=== PATIENT | female | born 1950 | race Caucasian/White ===

== ENCOUNTER → 2016-12-05 | Outpatient (CLI) | payer MEDICARE, MEDICAID ==
[~2016-12-05] MED LIST: ALBUTEROL0.09 MG/A2 IH; ALBUTEROL0.09 MG/A2 INH; ASPIRIN325 MG; ASPIRIN81 M1 PO; CELEXA20 MG PO; COMBIVENT1 AR1 IH; DAYPRO600 M1 PO; DIFLUCAN150 MG PO; DOXYCYCLINE HY100 M5 PO; DUONEB 3 MG/3 ML3 M1 NEB; Ecotrin325 MG PO; HYCODAN/HYDROMET5 ML PO; KLONOPIN0.5 MG; KLONOPIN1 MG PO; MULTIPLE VITAMI1 CAP PO; NICOTINE T21 MG/24 H TD; NITRO TRANS0.4 MG/HR T; NITRODISC TD; OMEPRAZOLE40 MG PO; OXYBUTYNIN5 MG PO; PRAVACHOL20 MG PO; PREDNICOT10 MG PO; PREDNICOT20 MG PO; PREDNISONE10 MG PO; PRENATAL1 TA3 PO; PROVENTIL0.09 MG/AC IH; PROZAC40 MG PO; ROBAXIN750 MG PO; TOVIAZ8 MG PO; VIBRAMYCIN100 MG PO; VIIBRYD40; VITAMIN D50000 I3 PO; XANAX1 MG PO; ZITHROMAX Z PA250 MG PO; [UNRECOGNIZED DRUG - REMARK]
[2016-12-05 12:15] LABS: BASO % 0.2 % (0.0-1.0); EOS % 0.3 % (1.0-4.0); HEMATOCRIT 43.5 % (37.0-47.0); HEMOGLOBIN 14.4 g/dl (12.0-16.0); LYMPH % 33.1 % (27.0-41.0); MEAN CELL VOLUME 97.1 fl (81.0-99.0); MEAN CORPUSCULAR HGB 32.1 pg (27.0-31.0); MEAN CORPUSCULAR HGB CONC 33.1 g/dl (33.0-37.0); MEAN PLATELET VOLUME 10.5 fl (9.6-12.3); MONO # 0.8 10*3/uL (0.1-1.0); NEUT # 7.1 10*3/uL (2.3-7.9); NEUT % 59.1 % (47.0-73.0); PLATELET COUNT AUTOMATED 229 10*3/uL (130-400); RED BLOOD COUNT 4.48 10*6/uL (4.10-5.10); RED CELL DISTRI WIDTH 13.6 % (0-14.5); WHITE BLOOD COUNT 12.1 10*3/uL (4.8-10.8)
== END | disposition home or self-care (01) ==
LOC: LAB 11:15
PROVIDERS: Internal Medicine Hematology & Oncology
DX: J44.9 Chronic obstructive pulmonary disease, unspecified (principal); D72.829 Elevated white blood cell count, unspecified; R13.10 Dysphagia, unspecified; R49.0 Dysphonia; F17.200 Nicotine dependence, unspecified, uncomplicated; Z85.3 Personal history of malignant neoplasm of breast; Z90.12 Acquired absence of left breast and nipple

== ENCOUNTER → 2017-05-21 | Outpatient (CLI) | payer MEDICARE | END | disposition home or self-care (01) | LOC: RAD 11:52 | DX: M17.12 Unilateral primary osteoarthritis, left knee (principal); M51.36 Other intervertebral disc degeneration, lumbar region; M47.896 Other spondylosis, lumbar region; M25.462 Effusion, left knee ==

== ENCOUNTER → 2017-06-12 | Outpatient (CLI) | payer MEDICARE ==
[~2017-06-12] MED LIST changes: +ZYPREXA20 M1 PO
== END | disposition home or self-care (01) ==
LOC: CARD 01:34
DX: R07.2 Precordial pain (principal)

== ENCOUNTER 2017-07-12 09:25 | Emergency (ER) | payer MEDICARE ==
[~2017-07-12] VITALS: Ht 157.4 cm; Wt 77.1 kg
[2017-07-12 09:51] LABS: BASO % 0.4 % (0.0-1.0); EOS # 0.1 10*3/uL (0.0-0.4); EOS % 1.4 % (1.0-4.0); HEMATOCRIT 39.5 % (37.0-47.0); HEMOGLOBIN 12.9 g/dl (12.0-16.0); LYMPH # 2.9 10*3/uL (1.3-4.4); LYMPH % 37.4 % (27.0-41.0); MEAN CELL VOLUME 96.3 fl (81.0-99.0); MEAN CORPUSCULAR HGB 31.5 pg (27.0-31.0); MEAN CORPUSCULAR HGB CONC 32.7 g/dl (33.0-37.0); MEAN PLATELET VOLUME 10.3 fl (9.6-12.3); MONO # 0.6 10*3/uL (0.1-1.0); MONO % 7.5 % (3.0-9.0); NEUT # 4.1 10*3/uL (2.3-7.9); PLATELET COUNT AUTOMATED 175 10*3/uL (130-400); RED CELL DISTRI WIDTH 13.2 % (0-14.5); WHITE BLOOD COUNT 7.7 10*3/uL (4.8-10.8)
[2017-07-12 10:07] LABS: ALBUMIN 3.3 gm/dl (3.1-4.5); ALKALINE PHOSPHATASE 103 U/L (45-117); BUN 9 mg/dl (7-24); CHLORIDE 104 mmol/L (98-107); CREATININE 0.69 mg/dL (0.55-1.02); POTASSIUM 4.4 mmol/L (3.5-5.1); SGOT/AST 17 IU/L (3-35); SGPT/ALT 21 U/L (12-78); SODIUM 141 mmol/L (136-145); TOTAL PROTEIN 6.9 gm/dL (6.4-8.2)
[2017-07-12 10:09] LABS: TROPONIN I < 0.015 ng/ml (<0.045)
[2017-07-12 11:15] VITALS: BP 102/64
== END 2017-07-12 11:25 | disposition home or self-care (01) ==
LOC: ED 09:25
PROVIDERS: Nurse Practitioner Family
DX: G89.29 Other chronic pain (principal); M25.562 Pain in left knee; E78.5 Hyperlipidemia, unspecified; Z90.710 Acquired absence of both cervix and uterus; Z90.49 Acquired absence of other specified parts of digestive tract; Z98.890 Other specified postprocedural states; Z79.82 Long term (current) use of aspirin; Z88.6 Allergy status to analgesic agent; Z88.5 Allergy status to narcotic agent

== ENCOUNTER 2017-12-25 14:20 | Inpatient (IN) | payer OTHER, MEDICAID ==
[~2017-12-25] VITALS: Ht 154.9 cm; Wt 95.7 kg
--- NOTE | ~2017-12-25 | EKG ---
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
[2017-12-25 14:46] VITALS: BP 111/50
[2017-12-25 15:23] LABS: BASO % 0.3 % (0.0-1.0); EOS # 0.1 10*3/uL (0.0-0.4); EOS % 0.9 % (1.0-4.0); HEMATOCRIT 43.3 % (37.0-47.0); LYMPH # 2.9 10*3/uL (1.3-4.4); LYMPH % 28.3 % (27.0-41.0); MEAN CELL VOLUME 95.6 fl (81.0-99.0); MEAN CORPUSCULAR HGB 30.9 pg (27.0-31.0); MEAN CORPUSCULAR HGB CONC 32.3 g/dl (33.0-37.0); MEAN PLATELET VOLUME 10.4 fl (9.6-12.3); MONO # 0.7 10*3/uL (0.1-1.0); MONO % 6.7 % (3.0-9.0); NEUT # 6.5 10*3/uL (2.3-7.9); NEUT % 63.5 % (47.0-73.0); PLATELET COUNT AUTOMATED 210 10*3/uL (130-400); RED BLOOD COUNT 4.53 10*6/uL (4.10-5.10); RED CELL DISTRI WIDTH 13.7 % (0-14.5); WHITE BLOOD COUNT 10.3 10*3/uL (4.8-10.8)
[2017-12-25 15:41] LABS: ALBUMIN 3.6 gm/dl (3.1-4.5); ALKALINE PHOSPHATASE 107 U/L (45-117); BUN 12 mg/dl (7-24); CHLORIDE 103 mmol/L (98-107); CREATININE 0.64 mg/dL (0.55-1.02); POTASSIUM 4.3 mmol/L (3.5-5.1); SGOT/AST 15 IU/L (3-35); SGPT/ALT 21 U/L (12-78); SODIUM 139 mmol/L (136-145); TOTAL PROTEIN 7.3 gm/dL (6.4-8.2)
[2017-12-25 15:47] LABS: TROPONIN I < 0.015 ng/ml (<0.045)
[2017-12-25] MEDS ORDERED: VITAMIN D-32000 UNIT PO (15:54)
[2017-12-25 16:00] VITALS: BP 111/50
[2017-12-25 20:00] VITALS: BP 86/49
[2017-12-25 20:45] VITALS: BP 86/48
[2017-12-25 22:45] VITALS: BP 108/68
[2017-12-26] VITALS (7 sets, daily range): BP systolic 86–152; BP diastolic 48–70
[2017-12-26 06:14] LABS: BASO % 0.2 % (0.0-1.0); HEMATOCRIT 42.1 % (37.0-47.0); HEMOGLOBIN 13.2 g/dl (12.0-16.0); LYMPH # 1.3 10*3/uL (1.3-4.4); MEAN CELL VOLUME 97.9 fl (81.0-99.0); MEAN CORPUSCULAR HGB 30.7 pg (27.0-31.0); MEAN CORPUSCULAR HGB CONC 31.4 g/dl (33.0-37.0); MEAN PLATELET VOLUME 10.8 fl (9.6-12.3); MONO # 0.1 10*3/uL (0.1-1.0); MONO % 0.5 % (3.0-9.0); NEUT # 10.3 10*3/uL (2.3-7.9); NEUT % 87.7 % (47.0-73.0); PLATELET COUNT AUTOMATED 197 10*3/uL (130-400); RED CELL DISTRI WIDTH 13.7 % (0-14.5); WHITE BLOOD COUNT 11.8 10*3/uL (4.8-10.8)
[2017-12-26 06:56] LABS: BUN 15 mg/dl (7-24); CHLORIDE 103 mmol/L (98-107); CHOLESTEROL 181 mg/dL (<200); CREATININE 1.05 mg/dL (0.55-1.02); PHOSPHOROUS 3.2 mg/dL (2.5-4.9); POTASSIUM 3.7 mmol/L (3.5-5.1); SODIUM 139 mmol/L (136-145)
[2017-12-26 07:08] LABS: FREE T4 1.03 ng/dl (0.76-1.46); HDL CHOLESTEROL 50 mg/dl (40-60); LDL CHOLESTEROL 117 mg/dL (9-159); THYROID STIM HORMONE (HS) 0.104 uIU/ml (0.358-4.75); TRIGLYCERIDES 71 mg/dl (<150); VLDL CHOLESTEROL 14 mg/dL (6-40)
[2017-12-26 07:59] LABS: VITAMIN D, 25-HYDROXY 28.7 ng/mL (30-100)
[2017-12-27] VITALS: BP 130/69
[2017-12-27 06:38] LABS: CHLORIDE 106 mmol/L (98-107); CREATININE 0.93 mg/dL (0.55-1.02); SODIUM 140 mmol/L (136-145)
[2017-12-27 06:40] LABS: BUN 26 mg/dl (7-24); POTASSIUM 4.8 mmol/L (3.5-5.1)
[2017-12-27 08:00] VITALS: BP 129/76
[2017-12-27 12:00] VITALS: BP 126/78
[2017-12-27 16:00] VITALS: BP 92/50; BP 98/49
[2017-12-28] VITALS: BP 91/44
[2017-12-28 08:00] VITALS: BP 95/58
[2017-12-28 12:00] VITALS: BP 90/49
[2017-12-28] MEDS ORDERED: DOXYCYCLINE100 M3 PO (13:26)
[2017-12-28] MEDS ORDERED: PREDNISONE10 MG PO (13:26)
[2017-12-28] MEDS ORDERED: NATURE'S BLEND F1 MG PO (13:26)
[2017-12-28] MEDS ORDERED: GUAIFENESIN600 MG PO (13:27)
[2017-12-28] MEDS ORDERED: GLUCOPHAGE500 M1 PO (13:27)
== END 2017-12-28 15:00 | disposition home or self-care (01) | DRG 190 ==
LOC: 4E 14:20
PROVIDERS: Student in an Organized Health Care Education/Training Program
DX: J44.1 Chronic obstructive pulmonary disease with (acute) exacerbation (principal); N17.0 Acute kidney failure with tubular necrosis; R13.10 Dysphagia, unspecified; K21.9 Gastro-esophageal reflux disease without esophagitis; E66.09 Other obesity due to excess calories; M19.90 Unspecified osteoarthritis, unspecified site; E53.8 Deficiency of other specified B group vitamins; F41.1 Generalized anxiety disorder; H26.9 Unspecified cataract; E11.65 Type 2 diabetes mellitus with hyperglycemia; I95.9 Hypotension, unspecified; Z90.12 Acquired absence of left breast and nipple; Z85.3 Personal history of malignant neoplasm of breast; Z98.1 Arthrodesis status; Z83.3 Family history of diabetes mellitus; Z82.49 Family history of ischemic heart disease and other diseases of the circulatory system; Z82.3 Family history of stroke; Z88.6 Allergy status to analgesic agent; Z90.49 Acquired absence of other specified parts of digestive tract; Z91.041 Radiographic dye allergy status; Z91.048 Other nonmedicinal substance allergy status; Z79.82 Long term (current) use of aspirin; Z79.899 Other long term (current) drug therapy; Z68.39 Body mass index [BMI] 39.0-39.9, adult; Z71.6 Tobacco abuse counseling

== ENCOUNTER 2018-01-04 15:03 | Inpatient (IN) | payer OTHER, MEDICAID ==
[~2018-01-04] VITALS: Ht 154.9 cm; Wt 95.8 kg
--- NOTE | ~2018-01-04 | PR ---
[place], [place] PROGRESS NOTE NAME: LOREN DIAZ UNIT #: [id number] ROOM: 404 DOCTOR: LOWELL MAI MD,GUILHERME BIRTHDATE: [birth year] DOS: 01/06/2018 SUBJECTIVE: She has been noted comfortable at this time, the client reported reduction of the symptoms of cough, but still noted significant wheezing. Shortness of breath occurs mild at rest and with exertion. She was continued on intravenous corticosteroids and other medical management. The patient denies symptoms of hemoptysis. OBJECTIVE: VITAL SIGNS: Normal temperature, respiratory rate 20, heart rate 107, blood pressure 117/69, pulse ox saturation on 2 liters nasal cannula 97% saturation. HEENT: Examination shows head was atraumatic. Eyes nonicterus. NECK: Supple. It was obese. CARDIOVASCULAR SYSTEM: S1, S2 audible. LUNGS: Noted diffuse expiratory wheezing. There were no crackles. ABDOMEN: Soft, nontender. Bowel sounds present and obese. EXTREMITIES: No edema. LABORATORY DATA: The sputum culture that was done shows preliminary finding normal jose, final culture results were pending. IMPRESSION: 1. Ongoing acute exacerbation of chronic obstructive pulmonary disease with acute bronchitis, which has been noted with slow improvement. 2. The patient with an acute hypoxic respiratory failure as well secondary to chronic obstructive pulmonary disease. PLAN OF MANAGEMENT: Continuation of current therapy at this time without any changes with use of bronchodilators, oxygen supplementation, corticosteroids, which is currently given high dose 60 mg q.8h. Monitor respiratory status, titrate oxygen supplementation, maintain pulse ox saturation 92% or greater. GUILHERME ETIENNE MD CM:PNTRANS [id number] [id number] GUILHERME MAI MD 01/22/18 0759 interface
--- NOTE | ~2018-01-04 | PR ---
[place], [place] PROGRESS NOTE NAME: LOREN DIAZ [facility] #: [id number] UNIT #: [id number] ROOM: 404 DOCTOR: EVELYN QUINTERO MD BIRTHDATE: [birth year] DOS: 01/05/2018 SUBJECTIVE: The patient is a known case of COPD with emphysema, was only recently discharged from the hospital on 12/28/2017 and developed reexacerbation of difficulty in breathing and was feeling very much shortness of breath, was feeling very weak and she was admitted to the hospital due to acute exacerbation of COPD with emphysema with hypoxia with difficulty in breathing and possible pneumonitis or acute respiratory tract infection. Chest x-ray done, did not show any pneumonia. The patient had some fever, but she did not have any pneumonia and she did not have any chills or fever. Her diagnoses on admission was COPD with acute exacerbation with hypotension, acute respiratory failure, hypoxia, failure of outpatient treatment, epigastric pain, leukocytosis, elevated C-reactive protein, elevated brain natriuretic peptide BNP, protein-calorie malnutrition, tobacco abuse, GERD syndrome, obesity, folate deficiency, vitamin D deficiency and diabetes mellitus type 2. Her troponin levels on 2 different occasions are normal. CT of the chest shows COPD with mild centrilobular emphysema, no pneumothorax or pleural effusion or consolidation, no evidence of acute infiltrative process, in the abdomen or pelvis, mild hepatic steatosis. CBC showed white count 37,400, hemoglobin 12.4, hematocrit 39.8. Basic metabolic profile shows glucose 279, CO2 of 33, lipase 65. Other values are normal. OBJECTIVE: VITAL SIGNS: Her blood pressure is 95/56, pulse 80, respirations 20, temperature 98.2, pulse ox is 99%. The patient says she is feeling better. HEART: Regular. CHEST: Increased expiration. No crepitation. EXTREMITIES: There is no edema of leg. ABDOMEN: Soft. EVELYN QUINTERO MD CM:PNTRANS 5 2 EVELYN QUINTERO MD 01/21/18 0800 interface
--- NOTE | ~2018-01-04 | CON ---
[place], [place] REPORT OF CONSULTATION NAME: LOREN DIAZ [facility] #: [id number] UNIT #: [id number] ROOM: 404 DOCTOR: GUILHERME HAIRSTON MD BIRTHDATE: [birth year] DOS: 01/05/2018 PULMONARY CONSULTATION, EVALUATION, AND MANAGEMENT REASON FOR CONSULTATION: Assess the patient for acute exacerbation of chronic obstructive pulmonary disease. HISTORY OF PRESENT ILLNESS: This is a 67-year-old white female patient with known past history of COPD, has been admitted to the hospital. The patient has been admitted to this hospital previously and discharged home. The patient remained in Hospital, medical record review from 12/25/2017 until 12/28/2017 for the acute exacerbation of chronic obstructive pulmonary disease as well as abdominal pain. The patient was managed at home for this. The patient discharged home on tapering dose of prednisone of the medical management, presented back to the hospital. The patient admitted to the hospital on 01/04/2018. The patient was seen in the office of primary care physician for followup visit where she was reported with increased shortness of breath. The patient denies any symptoms of chest pain. Cough has been noted moderately without any sputum expectoration. She was also noted with excessive drainage as well as productive white sputum expectoration. The patient also reported with subjective feeling of temperature of 102 degrees Fahrenheit at home and also noted with hypoxia and tachycardia in the office of primary care physician pulse ox saturation at 88% as well. The patient has been currently admitted to the hospital. The patient has been treated for acute exacerbation of COPD. REVIEW OF SYSTEMS: CONSTITUTIONAL SYMPTOMS: Fatigue and tiredness noted without any symptoms of fever or chills. EYES: Denies any burning, redness, or tenderness. EARS, NOSE, THROAT SYMPTOMS: Denies sore throat, hoarseness, otalgia, postnasal drainage. CARDIOVASCULAR: No angina pain, edema of the lower extremities. GASTROINTESTINAL: No dysphagia, nausea, vomiting, diarrhea, abdominal pain, hematemesis, melena, hematochezia, abnormal weight loss. GENITOURINARY: No dysuria or urinary incontinence except the urge incontinence. SKIN: Denies any hematuria or flank pain. MUSCULOSKELETAL: Denies acute joint pain, redness or tenderness or deformities. CENTRAL NERVOUS SYSTEM: Denies any dizziness, headache, diplopia, syncopal episodes or seizures. SKIN: No lesions or rashes. Remaining systems were reviewed. They were noted all negative. PAST MEDICAL HISTORY: 1. Chronic obstructive pulmonary disease. 2. History of breast cancer. The patient with a left mastectomy in the past. 3. Type 2 diabetes mellitus. 4. Generalized anxiety disorder. 5. Gastroesophageal reflux disease. 6. Osteoarthritis. [place], [place] REPORT OF CONSULTATION NAME: LOREN DIAZ UNIT #: [id number] ROOM: [facility] DOCTOR: THAIS HAIRSTON MDM BIRTHDATE: [birth year] 7. Stress incontinence. 8. Vitamin D deficiency. PAST SURGICAL HISTORY: 1. Left breast mastectomy. 2. Carpal tunnel surgery. 3. Cholecystectomy. 4. Cervical spine fusion. 5. Complete hysterectomy. SOCIAL HISTORY: The patient was reported with tobacco use, started since early teens, a pack of cigarettes per day. The patient stated has not been smoking cigarettes for the past one week. She is , no children, lives at home. Denies history of alcohol use or any illicit drugs. FAMILY HISTORY: Father of complication of heart disease. Mother with complication related to the stroke. HOME MEDICATIONS: Listed on admission use of albuterol sulfate, Xanax, aspirin, vitamin D, doxycycline, Prozac, folic acid, DuoNeb, Mucinex, metformin, Zyprexa, omeprazole, Oxybutynin and prednisone tapering dose. DRUG ALLERGIES: 1. IBUPROFEN. 2. CODEINE PHOSPHATE. PHYSICAL EXAMINATION: GENERAL: A 67-year-old female who has been currently noted to be awake and alert without acute any distress. The patient's height was recorded by the nursing staff at the time of the current admission with height of 5 feet 1 inch, weight of 211 pounds, BMI 39.9. VITAL SIGNS: For the patient which has been recorded showed the temperature was noted normal in the last 24 hours. The respiratory rate 20-18, heart rate of 80-72, blood pressure of 90/53-94/64. The intake for the patient recorded 1000, output 1200 mL. Pulse oxygen saturation on 3 liters via nasal cannula 95% saturation. HEENT: Head was atraumatic. Eyes nonicterus. NECK: Supple. CARDIOVASCULAR: S1, S2 is audible. LUNGS: Noted with decreased breath sounds with expiratory wheezing in the lungs bilaterally. ABDOMEN: Soft and nontender. Bowel sounds present. EXTREMITIES: The patient noted without any acute edema, clubbing or cyanosis. VISIBLE SKIN: No lesions or rashes. MUSCULOSKELETAL: Without any acute deformities. CENTRAL NERVOUS SYSTEM: Cranial nerves II through XII intact. No gross focal neurologic deficit. LABORATORY DATA: Blood culture for the patient from the past admission on 12/25/2017 was normal. Lactic acid on admission 01/04/2018 was normal. CBC on [place], [place] REPORT OF CONSULTATION NAME: LOREN DIAZ UNIT #: [id number] ROOM: 404 DOCTOR: LOWELL MAI MD,GUILHERME BIRTHDATE: [birth year] 01/04/2018, WBC count 14.5, hemoglobin 12, and platelet count were normal. CMP of 01/04/2018, normal BUN and creatinine. CO2 35. Troponin 3 sets in 24 hours were noted as normal. CBC of the patient this morning, WBC count 13.4, remaining CBC was normal. The BMP of patient this morning, glucose 279, normal BUN and creatinine. CT scan of the chest that was done without contrast was personally reviewed on admission was noted with changes of centrilobular emphysema without any acute pulmonary infiltration or other abnormalities. IMPRESSION: 1. The patient who has been admitted to the hospital noted with acute respiratory failure with subjective symptoms of fever. There was no evidence of acute pneumonia. Acute tracheobronchitis noted. 2. Possible trigger factor recurrent exacerbation of chronic obstructive pulmonary disease would be noted as most likely tobacco use. 3. Acute hypoxic respiratory failure result of the acute exacerbation of chronic obstructive pulmonary disease. 4. History of chronic obesity. 5. Relative mild hypotension without any vital organ issue for this patient and hypoperfusion noted, currently asymptomatic. PLAN OF THERAPY: The patient has been currently getting the Solu-Medrol 60 mg q.8h. that will be continued. Continue bronchodilators every 4 hours, current antibiotic, monitor culture results. Order the sputum for Gram stain and culture as well. Intravenous fluid for the patient was administered at least for 24 hours normal saline adequately at the volume reexpansion. Other supportive therapy, plan of management and care plan. Usual treatment. Additional treatment changes will be ordered based on progression of the illness. Thanks for allowing me to participate in the care of this patient. GUILHERME ETIENNE MD CM:CONSTR:REPORT OF CONSULTATION 1705 01/22/18 0802 interface
--- NOTE | ~2018-01-04 | EKG ---
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
--- NOTE | ~2018-01-04 | PR ---
[place], [place] PROGRESS NOTE NAME[facility] [id number] UNIT #: [id number] ROOM: 404 DOCTOR: LOWELL MAI MD,GUILHERME BIRTHDATE: [birth year] DOS: 01/07/2018 SUBJECTIVE: The patient was noted comfortable at this time without any acute distress. At this time, shortness breath, cough and wheezing has been decreased significantly in the last 24 hours. Cough has been noted minimal. Wheezing was also noted significant decrease. No chest pain. OBJECTIVE: VITAL SIGNS: Normal temperature, respiratory rate 18, heart rate 80, blood pressure 104/48 this morning. The pulse oxygen saturation recorded on 3 liters nasal cannula 94% saturation. HEAD, EYES, EARS, NOSE, AND THROAT: Examination shows head was atraumatic. Eyes nonicterus. NECK: Supple. CARDIOVASCULAR SYSTEM: S1, S2 is audible. LUNGS: Noted moderate decreased breath sounds bilaterally without any crackles, rhonchi, or wheezing. ABDOMEN: Soft, nontender. Bowel sounds present. EXTREMITIES: Without any acute edema. IMPRESSION: Acute respiratory failure with acute exacerbation of chronic obstructive pulmonary disease, past history of nicotine abuse and chronic obesity. PLAN OF MANAGEMENT: The patient could be assess home discharge at the present time. The oxygen supplementation needs to be assessed. Plan for home discharge, any home oxygen supplementation. Tobacco cessation addressed with the patient. Sputum culture noted no bacterial growths. GUILHERME ETIENNE MD CM:PNTRANS 1232 [id number] ISRAEL MAI MD 01/08/18 0930 MAURICE ATKINSON.ISRAEL
--- NOTE | ~2018-01-04 | PR ---
[place], [place] PROGRESS NOTE NAME: LOREN DIAZ [facility] #: [id number] UNIT #: [id number] ROOM: 404 DOCTOR: EVELYN QUINTERO MD BIRTHDATE: [birth year] DOS: SUBJECTIVE: The patient has been admitted with acute exacerbation of COPD with emphysema with difficulty in breathing. She is feeling much better as compared to yesterday. She denies any chest pain and she is having slight cough with some sore throat, but no fever and chills. She is saying that she is feeling much better as compared to yesterday and is very alert and oriented. Her sputum culture and sensitivity showed many white blood cells, moderate epithelial cells, moderate gram-positive cocci in pairs and clusters. Basic metabolic profile today showed glucose 279 and carbon dioxide 33, lipase 65. Other values are normal. CBC showed white count 30,400, hemoglobin 12.4, hematocrit 39.8. OBJECTIVE: VITAL SIGNS: Blood pressure is 111/71, pulse 94, respirations 18, temperature 97.9. CHEST: Having few rhonchi in the lungs with increased expiration. HEART: Regular. ABDOMEN: Soft. EVELYN QUINTERO MD CM:PNTRANS [id number] EVELYN QUINTERO MD 01/06/18 0840 interface
--- NOTE | ~2018-01-04 | PR ---
[place], [place] PROGRESS NOTE [id number] UNIT #: [id number] ROOM: 404 DOCTOR: LOWELL MAI MD,GUILHERME BIRTHDATE: [birth year] DOS: 01/08/2018 SUBJECTIVE: The patient independently seen and examined, duso-yt-xeve encounter, history was confirmed. Physical examination performed with the assessment and management was personally done for today's visit. Note done by the manager of medical approved. The patient has been showing continued improvement in the respiratory symptom gradually. The wheezing has been still present, but reduced gradually. Her shortness of breath and cough had also resolving. OBJECTIVE: VITAL SIGNS: Noted as normal, pulse oxygen saturation noted on 2 liters 95% saturation. LUNGS: Noted mild diffuse bilateral expiratory wheezing. There were no crackles. Air entry noted better. ABDOMEN: Soft and obese. LABORATORY DATA: CBC today, WBC count 14,000. Creatinine was normal. IMPRESSION: 1. Resolving acute exacerbation of chronic obstructive pulmonary disease aggressively with reduced oxygen requirement as well. 2. History of past nicotine use. 3. Chronic obesity. PLAN OF MANAGEMENT: The patient could be discharged home on oral antibiotics and the tapering prednisone. Abstinence tobacco use was recommended. Outpatient followup could be done with the patient and agreed in the next few weeks. GUILHERME ETIENNE MD CM:PNTRANS [id number] GUILHERME MAI MD 01/08/18 1256 interface
--- NOTE | ~2018-01-04 | PR ---
[place], [place] PROGRESS NOTE NAME: LOREN DIAZ [facility] #: [id number] UNIT #: [id number] ROOM: 404 DOCTOR: PRICE LOPEZ DO BIRTHDATE: [birth year] DOS: 01/08/2018 SUBJECTIVE: The patient was seen and examined at the bedside. She denies fevers, chills, chest pain, abdominal pain or any changes in bowel or bladder habits. She does admit to a cough productive for blood-tinged sputum, but she states that her shortness of breath is overall improving. OBJECTIVE: VITAL SIGNS: Show temperature at 98.1 degrees Fahrenheit, heart rate at 82, respiratory rate at 20, blood pressure at 123/81, pulse oximetry at 95% on 2 liters via nasal cannula. GENERAL APPEARANCE: The patient was awake, alert, responsive, cooperative and in no acute distress. HEENT: The head was normocephalic and atraumatic. No lesions or ulcerations were noted to the eyes. NECK: The trachea appeared midline. CARDIOVASCULAR: Regular rate and rhythm were noted. No murmurs, rubs or gallops were appreciated. Positive S1 and S2 sounds were heard. Both lower extremities were with trace edema. PULMONARY: Breath sounds were diminished bilaterally. Diffuse wheezing was appreciated. No crackles were auscultated. ABDOMEN: Soft, nondistended and nontender to palpation. Bowel sounds were auscultated. EXTREMITIES: The bilateral lower extremities were with trace edema, but without clubbing, cyanosis or erythema. LABORATORY DATA: CBC from today shows white count at 14.1, hemoglobin at 12.2, hematocrit at 39.6, platelets at 176. Chemistries from today show creatinine at 0.84. Microbiology shows blood cultures with no bacterial growth and sputum cultures show final growth for normal jose. IMPRESSION: 1. Acute exacerbation of chronic obstructive pulmonary disease and this is improving. 2. Acute hypoxic respiratory failure secondary to chronic obstructive pulmonary disease. 3. Obesity. PLAN OF MANAGEMENT At this time, the patient is on Cepacol lozenges as needed, Solu-Medrol 60 mg every 8 hours, guaifenesin, IV Levaquin 500 mg daily as well as bronchodilator therapy. Her symptoms are improving and she is stable from a pulmonary standpoint at this time for consideration of discharge. The patient can follow up on an outpatient basis with Pulmonary Medicine after her discharge. Price Lopez DO [place], [place] PROGRESS NOTE NAME: LOREN DIAZ UNIT #: [id number] ROOM: 404 DOCTOR: PRICE LOPEZ DO BIRTHDATE: [birth year] GUILHERME ETIENNE MD CM:JENNIFER [id number] PRICE LOPEZ DO 01/08/18 1112 interface
[~2018-01-04 15:03] MED LIST changes: +DOXYCYCLINE100 M3 PO; +GLUCOPHAGE500 M1 PO; +GUAIFENESIN600 MG PO; +NATURE'S BLEND F1 MG PO; +VITAMIN D-32000 UNIT PO
[2018-01-04 16:00] VITALS: BP 89/47
[2018-01-04 16:06] LABS: BASO % 0.1 % (0.0-1.0); EOS % 0.1 % (1.0-4.0); HEMATOCRIT 40.7 % (37.0-47.0); HEMOGLOBIN 12.8 g/dl (12.0-16.0); LYMPH # 2.4 10*3/uL (1.3-4.4); LYMPH % 16.6 % (27.0-41.0); MEAN CORPUSCULAR HGB 31.4 pg (27.0-31.0); MEAN CORPUSCULAR HGB CONC 31.4 g/dl (33.0-37.0); MEAN PLATELET VOLUME 10.7 fl (9.6-12.3); MONO # 0.5 10*3/uL (0.1-1.0); MONO % 3.6 % (3.0-9.0); NEUT # 11.5 10*3/uL (2.3-7.9); NEUT % 78.7 % (47.0-73.0); PLATELET COUNT AUTOMATED 188 10*3/uL (130-400); RED BLOOD COUNT 4.07 10*6/uL (4.10-5.10); RED CELL DISTRI WIDTH 14.2 % (0-14.5); WHITE BLOOD COUNT 14.5 10*3/uL (4.8-10.8)
[2018-01-04 16:25] LABS: ALKALINE PHOSPHATASE 88 U/L (45-117); BUN 14 mg/dl (7-24); CHLORIDE 101 mmol/L (98-107); CREATININE 0.72 mg/dL (0.55-1.02); POTASSIUM 4.3 mmol/L (3.5-5.1); SGOT/AST 10 IU/L (3-35); SGPT/ALT 20 U/L (12-78); SODIUM 141 mmol/L (136-145); TOTAL PROTEIN 6.8 gm/dL (6.4-8.2)
[2018-01-04 20:00] VITALS: BP 108/40; BP 92/50
[2018-01-05] VITALS: BP 95/56
[2018-01-05 06:31] LABS: BASO % 0.1 % (0.0-1.0); HEMATOCRIT 39.8 % (37.0-47.0); HEMOGLOBIN 12.4 g/dl (12.0-16.0); LYMPH # 1.1 10*3/uL (1.3-4.4); LYMPH % 7.9 % (27.0-41.0); MEAN CORPUSCULAR HGB 31.5 pg (27.0-31.0); MEAN CORPUSCULAR HGB CONC 31.2 g/dl (33.0-37.0); MEAN PLATELET VOLUME 10.9 fl (9.6-12.3); MONO # 0.2 10*3/uL (0.1-1.0); MONO % 1.3 % (3.0-9.0); NEUT # 11.9 10*3/uL (2.3-7.9); NEUT % 89.1 % (47.0-73.0); PLATELET COUNT AUTOMATED 186 10*3/uL (130-400); RED BLOOD COUNT 3.94 10*6/uL (4.10-5.10); WHITE BLOOD COUNT 13.4 10*3/uL (4.8-10.8)
[2018-01-05 06:51] LABS: BUN 16 mg/dl (7-24); CHLORIDE 101 mmol/L (98-107); CREATININE 0.87 mg/dL (0.55-1.02); LIPASE 65 U/L (73-393); PHOSPHOROUS 3.4 mg/dL (2.5-4.9); POTASSIUM 4.6 mmol/L (3.5-5.1); SODIUM 140 mmol/L (136-145)
[2018-01-05 08:00] VITALS: BP 94/64
[2018-01-05 12:00] VITALS: BP 90/53
[2018-01-05 16:00] VITALS: BP 87/35
[2018-01-05 20:00] VITALS: BP 107/41
[2018-01-06] VITALS: BP 111/71; BP 114/73
[2018-01-06 08:00] VITALS: BP 117/69
[2018-01-06 12:00] VITALS: BP 100/58
[2018-01-06 16:00] VITALS: BP 101/71
[2018-01-06 20:00] VITALS: BP 127/49
[2018-01-07] VITALS: BP 112/67
[2018-01-07 08:00] VITALS: BP 104/48
[2018-01-07 12:00] VITALS: BP 104/49
[2018-01-07 16:00] VITALS: BP 107/48
[2018-01-07 20:00] VITALS: BP 99/57
[2018-01-08] VITALS: BP 90/51
[2018-01-08 06:18] LABS: HEMATOCRIT 39.6 % (37.0-47.0); HEMOGLOBIN 12.2 g/dl (12.0-16.0); MEAN CELL VOLUME 102.1 fl (81.0-99.0); MEAN CORPUSCULAR HGB 31.4 pg (27.0-31.0); MEAN CORPUSCULAR HGB CONC 30.8 g/dl (33.0-37.0); MEAN PLATELET VOLUME 10.5 fl (9.6-12.3); PLATELET COUNT AUTOMATED 176 10*3/uL (130-400); RED BLOOD COUNT 3.88 10*6/uL (4.10-5.10); RED CELL DISTRI WIDTH 14.2 % (0-14.5); WHITE BLOOD COUNT 14.1 10*3/uL (4.8-10.8)
[2018-01-08 06:37] LABS: CREATININE 0.84 mg/dL (0.55-1.02)
[2018-01-08 07:32] LABS: PLATELET SUFFICIENCY NORMAL (NORMAL); TOTAL CELLS COUNTED 100 #CELLS
[2018-01-08 08:00] VITALS: BP 123/81
[2018-01-08] MEDS ORDERED: LEVAQUIN500 M2 PO (11:07)
[2018-01-08] MEDS ORDERED: PREDNISONE10 MG PO (11:07)
== END 2018-01-08 13:14 | disposition home or self-care (01) | DRG 871 ==
LOC: 4E 15:03
PROVIDERS: Internal Medicine; Student in an Organized Health Care Education/Training Program
DX: A41.9 Sepsis, unspecified organism (principal); J96.01 Acute respiratory failure with hypoxia; E44.0 Moderate protein-calorie malnutrition; J44.0 Chronic obstructive pulmonary disease with (acute) lower respiratory infection; J20.9 Acute bronchitis, unspecified; I95.9 Hypotension, unspecified; R10.13 Epigastric pain; D72.829 Elevated white blood cell count, unspecified; D75.89 Other specified diseases of blood and blood-forming organs; E66.09 Other obesity due to excess calories; E53.8 Deficiency of other specified B group vitamins; E55.9 Vitamin D deficiency, unspecified; K21.9 Gastro-esophageal reflux disease without esophagitis; E11.9 Type 2 diabetes mellitus without complications; F41.1 Generalized anxiety disorder; M19.90 Unspecified osteoarthritis, unspecified site; Z85.3 Personal history of malignant neoplasm of breast; Z90.710 Acquired absence of both cervix and uterus; Z90.49 Acquired absence of other specified parts of digestive tract; Z98.1 Arthrodesis status; Z90.12 Acquired absence of left breast and nipple; Z82.49 Family history of ischemic heart disease and other diseases of the circulatory system; Z83.3 Family history of diabetes mellitus; Z82.3 Family history of stroke; Z88.6 Allergy status to analgesic agent; Z88.5 Allergy status to narcotic agent; Z91.018 Allergy to other foods; Z79.82 Long term (current) use of aspirin; Z72.0 Tobacco use; Z68.39 Body mass index [BMI] 39.0-39.9, adult; Z79.84 Long term (current) use of oral hypoglycemic drugs; Z79.899 Other long term (current) drug therapy

== ENCOUNTER 2018-05-03 14:28 | Emergency (ER) | payer OTHER, MEDICAID ==
[~2018-05-03] VITALS: Ht 154.9 cm; Wt 97.5 kg
[2018-05-03 14:28] VITALS: BP 103/53
[~2018-05-03 14:28] MED LIST changes: +LEVAQUIN500 M2 PO
[2018-05-03] MEDS ORDERED: MUCINEX ER600 MG PO (16:17)
== END 2018-05-03 16:26 | disposition home or self-care (01) ==
LOC: ED 14:28
DX: J06.9 Acute upper respiratory infection, unspecified (principal); M17.12 Unilateral primary osteoarthritis, left knee; J44.9 Chronic obstructive pulmonary disease, unspecified; E11.9 Type 2 diabetes mellitus without complications; K21.9 Gastro-esophageal reflux disease without esophagitis; F17.200 Nicotine dependence, unspecified, uncomplicated; Z90.710 Acquired absence of both cervix and uterus; Z90.49 Acquired absence of other specified parts of digestive tract; Z91.048 Other nonmedicinal substance allergy status; Z88.5 Allergy status to narcotic agent; Z88.8 Allergy status to other drugs, medicaments and biological substances; Z79.84 Long term (current) use of oral hypoglycemic drugs; Z79.82 Long term (current) use of aspirin; Z79.899 Other long term (current) drug therapy

== ENCOUNTER → 2018-07-09 | Outpatient (CLI) | payer OTHER ==
[~2018-07-09] MED LIST changes: +MUCINEX ER600 MG PO; +PREDNISONE50 MG PO; +PROAIR HFA8.5 GM INH; +ZITHROMAX250 MG PO; +ZYRTEC10 MG PO
== END | disposition home or self-care (01) ==
LOC: MAMMO 14:26
DX: Z12.31 Encounter for screening mammogram for malignant neoplasm of breast (principal)

== ENCOUNTER 2018-10-28 13:18 | Emergency (ER) | payer OTHER, MEDICAID ==
[~2018-10-28] VITALS: Ht 154.9 cm; Wt 86.2 kg
[~2018-10-28 13:18] MED LIST changes: -PREDNISONE50 MG PO; -PROAIR HFA8.5 GM INH; -ZITHROMAX250 MG PO; -ZYRTEC10 MG PO
[2018-10-28 13:21] VITALS: BP 109/35
[2018-10-28 14:28] LABS: BASO % 0.2 % (0.0-1.0); EOS # 0.2 10*3/uL (0.0-0.4); EOS % 2.2 % (1.0-4.0); HEMATOCRIT 42.3 % (37.0-47.0); HEMOGLOBIN 13.4 g/dl (12.0-16.0); LYMPH # 2.6 10*3/uL (1.3-4.4); LYMPH % 24.2 % (27.0-41.0); MEAN CELL VOLUME 96.6 fl (81.0-99.0); MEAN CORPUSCULAR HGB 30.6 pg (27.0-31.0); MEAN CORPUSCULAR HGB CONC 31.7 g/dl (33.0-37.0); MEAN PLATELET VOLUME 10.2 fl (9.6-12.3); MONO # 0.6 10*3/uL (0.1-1.0); MONO % 5.4 % (3.0-9.0); NEUT # 7.3 10*3/uL (2.3-7.9); NEUT % 67.6 % (47.0-73.0); PLATELET COUNT AUTOMATED 220 10*3/uL (130-400); RED BLOOD COUNT 4.38 10*6/uL (4.10-5.10); RED CELL DISTRI WIDTH 12.9 % (0-14.5); WHITE BLOOD COUNT 10.8 10*3/uL (4.8-10.8)
[2018-10-28 14:41] LABS: ALBUMIN 3.2 gm/dl (3.1-4.5); ALKALINE PHOSPHATASE 102 U/L (45-117); BUN 9 mg/dl (7-24); CHLORIDE 103 mmol/L (98-107); POTASSIUM 4.2 mmol/L (3.5-5.1); SGOT/AST 12 IU/L (3-35); SGPT/ALT 13 U/L (12-78); SODIUM 141 mmol/L (136-145)
[2018-10-28] MEDS ORDERED: ZITHROMAX250 MG PO (15:00)
[2018-10-28] MEDS ORDERED: ZYRTEC10 MG PO (15:00)
[2018-10-28] MEDS ORDERED: PROAIR HFA8.5 GM INH (15:00)
[2018-10-28] MEDS ORDERED: PREDNISONE50 MG PO (15:00)
== END 2018-10-28 15:15 | disposition home or self-care (01) ==
LOC: ED 13:18
PROVIDERS: Nurse Practitioner Family
DX: J20.9 Acute bronchitis, unspecified (principal); Z91.048 Other nonmedicinal substance allergy status; Z88.5 Allergy status to narcotic agent; Z88.8 Allergy status to other drugs, medicaments and biological substances; Z79.899 Other long term (current) drug therapy; Z79.82 Long term (current) use of aspirin; Z90.710 Acquired absence of both cervix and uterus; Z90.49 Acquired absence of other specified parts of digestive tract

== ENCOUNTER → 2019-04-23 | Outpatient (CLI) | payer OTHER, MEDICAID ==
[~2019-04-23] MED LIST changes: +PREDNISONE50 MG PO; +PROAIR HFA8.5 GM INH; +ZITHROMAX250 MG PO; +ZYRTEC10 MG PO
[2019-04-23 11:14] LABS: ALBUMIN 3.8 gm/dl (3.1-4.5); BILIRUBIN, DIRECT 0.2 mg/dL (0.0-0.2); TOTAL PROTEIN 7.6 gm/dL (6.4-8.2)
[2019-04-23 11:22] LABS: VALPROIC ACID (DEPAKENE) 4.4 ug/ml (50-100)
== END | disposition home or self-care (01) ==
LOC: LAB 10:40
PROVIDERS: Nurse Practitioner Family
DX: Z79.899 Other long term (current) drug therapy (principal)

== ENCOUNTER → 2020-04-14 | Outpatient (CLI) | payer OTHER, MEDICAID | END | disposition home or self-care (01) | LOC: COVID19 10:52 | PROVIDERS: ATTEND Student in an Organized Health Care Education/Training Program | DX: Z20.828 Contact with and (suspected) exposure to other viral communicable diseases (principal) ==

== ENCOUNTER → 2020-12-27 | Outpatient (CLI) | payer OTHER, MEDICAID | LOC: US 08:08 | PROVIDERS: ATTEND Internal Medicine | DX: K76.0 Fatty (change of) liver, not elsewhere classified (principal); Z90.49 Acquired absence of other specified parts of digestive tract ==

== ENCOUNTER 2021-02-14 17:09 | Inpatient (IN) | payer OTHER, MEDICAID ==
[~2021-02-14] VITALS: Ht 152.4 cm; Wt 77.2 kg
[2021-02-14 17:49] LABS: BASO % 0.4 % (0.0-1.0); EOS # 0.1 10*3/uL (0.0-0.4); EOS % 0.8 % (1.0-4.0); HEMATOCRIT 40.3 % (37.0-47.0); LYMPH % 41.8 % (27.0-41.0); MEAN CELL VOLUME 93.3 fl (81.0-99.0); MEAN CORPUSCULAR HGB CONC 33.3 g/dl (33.0-37.0); MEAN PLATELET VOLUME 11.2 fl (9.6-12.3); MONO # 0.8 10*3/uL (0.1-1.0); NEUT # 4.7 10*3/uL (2.3-7.9); NEUT % 48.8 % (47.0-73.0); PLATELET COUNT AUTOMATED 225 10*3/uL (130-400); RED BLOOD COUNT 4.32 10*6/uL (4.10-5.10); WHITE BLOOD COUNT 9.7 10*3/uL (4.8-10.8)
[2021-02-14 18:06] LABS: ACT PARTIAL THROMBO TIME 23.4 SECONDS (20.0-32.1); ALBUMIN 3.5 gm/dl (3.1-4.5); ALKALINE PHOSPHATASE 67 U/L (45-117); BUN 18 mg/dl (7-24); CHLORIDE 107 mmol/L (98-107); CREATININE 1.07 mg/dL (0.55-1.02); SGOT/AST 13 IU/L (3-35); SGPT/ALT 16 U/L (12-78); SODIUM 140 mmol/L (136-145); TOTAL PROTEIN 7.4 gm/dL (6.4-8.2)
[2021-02-14 18:08] LABS: TROPONIN I < 0.015 ng/ml (<0.045)
[2021-02-14 23:10] VITALS: BP 115/76
[2021-02-14] MEDS ORDERED: CITALOPRAM HYDR40 MG PO (23:29)
[2021-02-14] MEDS ORDERED: AMITRIPTYLINE H10 M1 PO (23:29)
[2021-02-14] MEDS ORDERED: PHENTERMINE H37.5 M1 PO (23:29)
[2021-02-14] MEDS ORDERED: VITAMIN E268 MG PO (23:30)
[2021-02-14] MEDS ORDERED: ATORVASTATIN CA10 M1 PO (23:31)
[2021-02-14] MEDS ORDERED: DIVALPROEX SOD125 MG PO (23:31)
[2021-02-14] MEDS ORDERED: OXYBUTYNIN ER15 MG PO (23:34)
[2021-02-15 06:41] LABS: ALBUMIN 3.2 gm/dl (3.1-4.5); ALKALINE PHOSPHATASE 61 U/L (45-117); BUN 18 mg/dl (7-24); CHLORIDE 109 mmol/L (98-107); CREATININE 0.81 mg/dL (0.55-1.02); POTASSIUM 4.2 mmol/L (3.5-5.1); SGOT/AST 8 IU/L (3-35); SGPT/ALT 16 U/L (12-78); SODIUM 140 mmol/L (136-145); TOTAL PROTEIN 7.1 gm/dL (6.4-8.2)
[2021-02-15 06:42] LABS: VALPROIC ACID (DEPAKENE) 13.5 ug/ml (50-100)
[2021-02-15 08:00] VITALS: BP 100/50
[2021-02-15 12:00] VITALS: BP 138/62
[2021-02-15 16:00] VITALS: BP 103/58
[2021-02-15 20:00] VITALS: BP 94/65
[2021-02-16] VITALS: BP 117/49
[2021-02-16 08:00] VITALS: BP 96/48
[2021-02-16 12:00] VITALS: BP 95/53
[2021-02-16 16:00] VITALS: BP 103/59
[2021-02-16 20:00] VITALS: BP 102/42
[2021-02-17] VITALS: BP 82/48
[2021-02-17 00:35] VITALS: BP 100/66
[2021-02-17 06:46] LABS: BASO % 0.1 % (0.0-1.0); HEMATOCRIT 33.7 % (37.0-47.0); LYMPH # 1.8 10*3/uL (1.3-4.4); LYMPH % 14.4 % (27.0-41.0); MEAN CELL VOLUME 96.3 fl (81.0-99.0); MEAN CORPUSCULAR HGB 30.6 pg (27.0-31.0); MEAN CORPUSCULAR HGB CONC 31.8 g/dl (33.0-37.0); MEAN PLATELET VOLUME 11.7 fl (9.6-12.3); MONO # 0.7 10*3/uL (0.1-1.0); MONO % 5.2 % (3.0-9.0); NEUT # 10.2 10*3/uL (2.3-7.9); NEUT % 79.7 % (47.0-73.0); PLATELET COUNT AUTOMATED 169 10*3/uL (130-400); RED CELL DISTRI WIDTH 13.5 % (0-14.5); WHITE BLOOD COUNT 12.8 10*3/uL (4.8-10.8)
[2021-02-17 07:00] LABS: BUN 32 mg/dl (7-24); CHLORIDE 112 mmol/L (98-107); CREATININE 0.69 mg/dL (0.55-1.02); POTASSIUM 4.5 mmol/L (3.5-5.1); SODIUM 142 mmol/L (136-145)
[2021-02-17 08:00] VITALS: BP 108/60
[2021-02-17 12:00] VITALS: BP 92/50
[2021-02-17] MEDS ORDERED: Vibra-Tab100 MG PO ×2 (13:00)
[2021-02-17] MEDS ORDERED: PREDNISONE10 MG PO ×2 (13:00)
== END 2021-02-17 14:35 | disposition home or self-care (01) | DRG 189 ==
LOC: ED 17:09 → EDHOLD 18:55 → 5E 18:55
PROVIDERS: Emergency Medicine; ADMIT Internal Medicine; ATTEND Internal Medicine
DX: J96.91 Respiratory failure, unspecified with hypoxia (principal); R65.11 Systemic inflammatory response syndrome (SIRS) of non-infectious origin with acute organ dysfunction; J44.1 Chronic obstructive pulmonary disease with (acute) exacerbation; C50.919 Malignant neoplasm of unspecified site of unspecified female breast; K21.9 Gastro-esophageal reflux disease without esophagitis; F41.1 Generalized anxiety disorder; F17.210 Nicotine dependence, cigarettes, uncomplicated; M19.90 Unspecified osteoarthritis, unspecified site; N39.41 Urge incontinence; I95.9 Hypotension, unspecified; E55.9 Vitamin D deficiency, unspecified; E11.69 Type 2 diabetes mellitus with other specified complication; M17.12 Unilateral primary osteoarthritis, left knee; E66.9 Obesity, unspecified; Z71.6 Tobacco abuse counseling; Z90.12 Acquired absence of left breast and nipple; Z90.49 Acquired absence of other specified parts of digestive tract; Z90.710 Acquired absence of both cervix and uterus; Z82.49 Family history of ischemic heart disease and other diseases of the circulatory system; Z82.3 Family history of stroke; Z88.5 Allergy status to narcotic agent; Z88.6 Allergy status to analgesic agent; Z79.51 Long term (current) use of inhaled steroids; Z79.82 Long term (current) use of aspirin; Z79.899 Other long term (current) drug therapy; Z68.33 Body mass index [BMI] 33.0-33.9, adult

== ENCOUNTER 2021-02-24 10:58 | Emergency (ER) | payer OTHER, MEDICAID ==
[~2021-02-24] VITALS: Ht 154.9 cm; Wt 80.3 kg
[~2021-02-24 10:58] MED LIST changes: +AMITRIPTYLINE H10 M1 PO; +ATORVASTATIN CA10 M1 PO; +CITALOPRAM HYDR40 MG PO; +DIVALPROEX SOD125 MG PO; +OXYBUTYNIN ER15 MG PO; +PHENTERMINE H37.5 M1 PO; +VITAMIN E268 MG PO; +Vibra-Tab100 MG PO
[2021-02-24] MEDS ORDERED: KLOR-CON 1010 ME1 PO (11:16)
[2021-02-24 12:00] LABS: BASO % 0.2 % (0.0-1.0); EOS # 0.1 10*3/uL (0.0-0.4); EOS % 1.2 % (1.0-4.0); HEMATOCRIT 34.6 % (37.0-47.0); LYMPH # 4.8 10*3/uL (1.3-4.4); LYMPH % 39.2 % (27.0-41.0); MEAN CELL VOLUME 95.8 fl (81.0-99.0); MEAN CORPUSCULAR HGB 30.5 pg (27.0-31.0); MEAN CORPUSCULAR HGB CONC 31.8 g/dl (33.0-37.0); MEAN PLATELET VOLUME 10.8 fl (9.6-12.3); MONO # 0.8 10*3/uL (0.1-1.0); MONO % 6.4 % (3.0-9.0); NEUT # 6.4 10*3/uL (2.3-7.9); NEUT % 52.5 % (47.0-73.0); PLATELET COUNT AUTOMATED 171 10*3/uL (130-400); RED BLOOD COUNT 3.61 10*6/uL (4.10-5.10); RED CELL DISTRI WIDTH 13.5 % (0-14.5); WHITE BLOOD COUNT 12.2 10*3/uL (4.8-10.8)
[2021-02-24 12:22] LABS: ALBUMIN 2.7 gm/dl (3.1-4.5); ALKALINE PHOSPHATASE 50 U/L (45-117); BUN 16 mg/dl (7-24); CHLORIDE 107 mmol/L (98-107); CREATININE 0.69 mg/dL (0.55-1.02); POTASSIUM 4.4 mmol/L (3.5-5.1); SGOT/AST 7 IU/L (3-35); SGPT/ALT 19 U/L (12-78); SODIUM 145 mmol/L (136-145); TOTAL PROTEIN 5.8 gm/dL (6.4-8.2)
[2021-02-24 12:26] LABS: TROPONIN I < 0.015 ng/ml (<0.045)
[2021-02-24 15:50] LABS: BILIRUBIN Negative (Negative); BLOOD Negative (Negative); CLARITY Clear (Clear); COLOR Yellow (Yellow); GLUCOSE Negative (Negative); KETONE Negative (Negative); LEUKO ESTERASE Trace (Negative); NITRITE Negative (Negative); SPECIFIC GRAVITY 1.015 (1.001-1.030)
[2021-02-24 16:00] LABS: BACTERIA TRACE; RBC 0-2 rbc/hpf (0-2)
[2021-02-24 17:15] VITALS: BP 106/58
== END 2021-02-24 17:15 | disposition home or self-care (01) ==
LOC: ED 10:58
PROVIDERS: Physician Assistant
DX: I95.9 Hypotension, unspecified (principal); Z88.6 Allergy status to analgesic agent; Z79.899 Other long term (current) drug therapy; Z79.82 Long term (current) use of aspirin; F17.200 Nicotine dependence, unspecified, uncomplicated

== ENCOUNTER → 2021-03-21 | Outpatient (CLI) | payer OTHER, MEDICAID ==
[~2021-03-21] MED LIST changes: +KLOR-CON 1010 ME1 PO
== END | disposition home or self-care (01) ==
LOC: COVID19 15:41
PROVIDERS: ATTEND Internal Medicine
DX: Z11.52 Encounter for screening for COVID-19 (principal)

== ENCOUNTER → 2021-12-02 | Outpatient (CLI) | payer OTHER, MEDICAID | LOC: RAD 11-07 13:30 | PROVIDERS: ATTEND Internal Medicine | DX: M85.851 Other specified disorders of bone density and structure, right thigh (principal); Z78.0 Asymptomatic menopausal state ==

== ENCOUNTER 2023-12-22 18:40 | Emergency (ER) | payer OTHER, MEDICAID ==
[~2023-12-22] VITALS: Ht 160 cm; Wt 59.4 kg
[2023-12-22 18:51] VITALS: BP 159/60
== END 2023-12-22 22:41 | disposition home or self-care (01) ==
LOC: ED 18:40
DX: M54.2 Cervicalgia (principal); M54.6 Pain in thoracic spine; F41.9 Anxiety disorder, unspecified; J44.9 Chronic obstructive pulmonary disease, unspecified; E11.9 Type 2 diabetes mellitus without complications; F31.9 Bipolar disorder, unspecified; F17.200 Nicotine dependence, unspecified, uncomplicated; Z91.048 Other nonmedicinal substance allergy status; Z88.5 Allergy status to narcotic agent; Z88.6 Allergy status to analgesic agent; Z90.710 Acquired absence of both cervix and uterus; Z98.51 Tubal ligation status; Z98.890 Other specified postprocedural states; V43.52XA Car driver injured in collision with other type car in traffic accident, initial encounter; Y93.89 Activity, other specified; Y92.410 Unspecified street and highway as the place of occurrence of the external cause; Y99.8 Other external cause status